=== PATIENT | female | born 1990 | race Caucasian/White ===

== ENCOUNTER 2018-12-25 17:50 | Outpatient (CLI) | payer OTHER ==
[2018-12-25 19:21] LABS: APPEARANCE,URINE CLEAR; BILIRUBIN,URINE NEGATIVE (NEGATIVE); COLOR,URINE STRAW; GLUCOSE, URINE NEGATIVE (NEGATIVE); KETONES,URINE NEGATIVE (NEGATIVE); LEUKOCYTE ESTERASE,URINE NEGATIVE (NEGATIVE); NITRITE,URINE NEGATIVE (NEGATIVE); PROTEIN,URINE NEGATIVE (NEGATIVE); URINE SPECIFIC GRAVITY 1.005; UROBILINOGEN,URINE NEGATIVE mg/dL (<2.0)
[2018-12-25 19:30] LABS: URINE AMPHETAMINES SCREEN NEGATIVE; URINE BARBITURATES SCREEN NEGATIVE; URINE BENZODIAZEPINES SCREEN NEGATIVE; URINE COCAINE SCREEN NEGATIVE; URINE MARIJUANA (THC) SCREEN NEGATIVE; URINE METHADONE SCREEN NEGATIVE; URINE PHENCYCLIDINE SCREEN NEGATIVE
--- NOTE | 2018-12-25 21:57 | RADIOLOGY REPORT (SQ) ---
EXAM DESCRIPTION: RadLex: US LIMITED CLINICAL HISTORY: 28 years Female; Abdominal Pain TECHNIQUE: Transabdominal limited due to obstetrical ultrasound was performed. COMPARISON: None. FINDINGS: Number of fetuses: Single position: Vertex HR: 128 BPM Anatomy: Not fully evaluated. Measurements were not performed on this limited exam. Amniotic fluid: CHRISTIE 14.4 cm, adequate. Clear. Cervix: 3.5 cm, closed Placenta: Posterior. No evidence for placental separation. No hematoma. IMPRESSION: 1. Single viable IUP. No acute findings.
== END 2018-12-25 21:40 | disposition home or self-care (01) ==
LOC: LC 17:50
PROVIDERS: ATTEND Obstetrics & Gynecology
PROC: 4A1HXCZ Monitoring of Products of Conception, Cardiac Rate, External Approach (ICD-10-PCS; principal; 2018-12-25)
DX: O26.892 Other specified pregnancy related conditions, second trimester (principal); R10.9 Unspecified abdominal pain; Z3A.27 27 weeks gestation of pregnancy
CPT/HCPCS: 76815; 80307; 81001

== ENCOUNTER 2019-03-25 19:30 | Inpatient (IN) | payer OTHER ==
[2019-04-01] MEDS ORDERED: DINOPROSTONE 10 MG VAGINAL INSERT.SR PV PRN (18:48)
[2019-04-01] MEDS ORDERED: RINGERS SOLUTION,LACTATED 300 ML IV ONE (18:48)
[2019-04-01] MEDS ORDERED: OXYTOCIN/NORMAL SALINE 20 UNIT/1,000 ML RTUINJ IV PRN (18:48)
[2019-04-01 19:14] LABS: ABSOLUTE EOSINOPHILS # (AUTO) 0.1 10^3/uL (0.0-0.6); ABSOLUTE LYMPHOCYTES (AUTO) 1.6 10^3/uL (0.5-4.7); ABSOLUTE MONOCYTES (AUTO) 0.6 10^3/uL (0.1-1.4); ABSOLUTE NEUT (AUTO) 6.1 10^3/uL (1.7-8.2); BASOPHILS % (AUTO) 0.2 % (0-2); EOSINOPHILS % (AUTO) 0.8 % (0-6); HEMATOCRIT 31.1 % (36.0-47.0); HEMOGLOBIN 10.7 g/dL (12.0-15.5); LYMPHOCYTES % (AUTO) 19.1 % (13-45); MEAN CORPUSCULAR HEMOGLOBIN 25.7 pg (27.0-33.4); MEAN CORPUSCULAR HGB CONC 34.3 g/dL (32.0-36.0); MEAN CORPUSCULAR VOLUME 75 fl (80-97); MONOCYTES % (AUTO) 7.2 % (3-13); PLATELET COUNT 171 10^3/uL (150-450); RED BLOOD COUNT 4.15 10^6/uL (3.72-5.28); RED CELL DISTRIBUTION WIDTH 17.1 % (11.5-14.0); SEGMENTED NEUTROPHILS % (AUTO) 72.7 % (42-78); TOTAL CELLS COUNTED % (AUTO) 100 %; WHITE BLOOD COUNT 8.4 10^3/uL (4.0-10.5)
[2019-04-01 19:16] LABS: APPEARANCE,URINE CLEAR; BILIRUBIN,URINE NEGATIVE (NEGATIVE); COLOR,URINE YELLOW; GLUCOSE, URINE NEGATIVE (NEGATIVE); KETONES,URINE NEGATIVE (NEGATIVE); LEUKOCYTE ESTERASE,URINE NEGATIVE (NEGATIVE); NITRITE,URINE NEGATIVE (NEGATIVE); PROTEIN,URINE NEGATIVE (NEGATIVE); URINE SPECIFIC GRAVITY 1.011; UROBILINOGEN,URINE NEGATIVE mg/dL (<2.0)
[2019-04-01] MEDS ORDERED: DINOPROSTONE 10 MG VAGINAL INSERT.SR ONE (19:38)
[2019-04-01 20:01] LABS: URINE AMPHETAMINES SCREEN NEGATIVE; URINE BARBITURATES SCREEN NEGATIVE; URINE BENZODIAZEPINES SCREEN NEGATIVE; URINE COCAINE SCREEN NEGATIVE; URINE METHADONE SCREEN NEGATIVE; URINE PHENCYCLIDINE SCREEN NEGATIVE
[2019-04-01 20:02] LABS: URINE MARIJUANA (THC) SCREEN NEGATIVE
--- NOTE | 2019-04-01 21:16 | Admission Physical ---
Datetime Report Generated by CPN: 04/01/2019 21:15 CURRENT ADMISSION Indication for Induction: Post Dates Admit Impression : Postterm, Intrauterine ; No Active Labor Admit Plan: Admit to Unit; Initiate Labor Induction Protocol ALLERGIES Medication Allergies: No Medication Allergies: No Known Allergies (03/21/2019) Latex: No Latex Allergies OBSTETRICAL HISTORY EDC: 03/25/2019 00:00 : 1 Para: 0 Term: 0 : 0 SAB: 0 IAB: 0 Ectopic: 0 Livin Cesareans: 0 VBACs: 0 Multiple Births: 0 Gestational Diabetes: No Rh Sensitization: No Incompetent Cervix: No SHANEKA: No Infertility: No ART Treatment: No Uterine Anomaly: No IUGR: No Hx Previous C/S: No Macrosomia: No Hx Loss/Stillborn: No PIH: No Hx : No Placenta Previa/Abruption: No Depression/PP Depression: No PTL/PROM: No Post Hemorrhage: No Current Procedures: Ultrasound; NST Obstetrical History Comments: G1- Current SEE RECORDS Alcohol: No Marijuana : No Cocaine: No Other Illicit Drugs: No Cigarettes: Former Smoker. [id number] MEDICAL HISTORY Diabetes: No Blood Transfusion: No Pulmonary Disease (Asthma, TB): No Breast Disease: No Hypertension: No Photographer Helper Surgery: No Heart Disease: No Hosp/Surgery: Yes Autoimmune Disorder: No Anesthetic Complications: No Kidney Disease: No Abnormal Pap Smear: No Neuro/Epilepsy: No Psychiatric Disorders: No Other Medical Diseases: No Hepatitis/Liver Disease: No Significant Family History: No Varicosities/Phlebitis: No Trauma/Violence : No Thyroid Dysfunction: No Medical History Comments: Appendix 2013 INFECTIOUS HISTORY Gonorrhea: No Genital Herpes: No Chlamydia: No Tuberculosis: No Syphilis: No Hepatitis: No HIV/AIDS Exposure: No Rash or Viral Illness: No HPV: No PHYSICAL EXAM General: Normal HEENT: Normal Neurologic: Normal Thyroid: Normal Heart: Normal Lungs: Normal Breast: Normal Back: Normal Abdomen: Normal Genitourinary Exam: Normal Extremities: Normal DTRs: Normal Pelvic Type: Adequate Vital Signs: Reviewed; Within Normal Limits VAGINAL EXAM Dilatation: 1 Effacement: 80 Station: -1 Contraction Comments: no regular MEMBRANES Membranes: Intact FETUS A Monitoring: External US FHR- Baseline: 140 Variability: Moderate 6-25bpm Accelerations: 15X15 Decelerations: None Admit Comment: G1 at 41 wks for IOL postdates -Admit to LDR -NPO and IVFs -CEFM and toco -Out of bed as tolerated -SCD while in bed -Cervix /-1. Cervidil placed -GBS negative -Anticipate PLANS FOR LABOR AND DELIVERY Labor and Delivery: None Pain Management: Natural Feeding Preference: Breast Benefit of Breast Feed Discussed: Yes Circumcision: N/A INFORMED CONSENT Informed Consent Obtained: Vaginal Delivery; Section Delivery; Vacuum/Forceps Assist; Risks, Benefits and Alternatives Discussed Signature: with User ID: [email or web address] : with User ID: [email or web address]
[2019-04-01] MEDS ORDERED: ZOLPIDEM TARTRATE 5 MG TABLET PO ONE (22:30)
[2019-04-01] MEDS ORDERED: ZOLPIDEM TARTRATE 5 MG TABLET ONE (22:51)
[2019-04-02] MEDS ORDERED: OXYTOCIN 10 UNIT/ML VIAL ONE ×2 (00:34→01:14)
[2019-04-02] MEDS ORDERED: OXYTOCIN/NORMAL SALINE 20 UNIT/1,000 ML RTUINJ ONE (00:34)
[2019-04-02] MEDS ORDERED: LIDOCAINE 1% INJ-PF (10 MG/ML) 30 ML SDV ONE (00:34)
[2019-04-02] MEDS ORDERED: MISOPROSTOL 0.2 MG TABLET ONE (00:34)
[2019-04-02] MEDS ORDERED: PROMETHAZINE HCL INJ 25 MG/1 ML VIAL ONE (02:27)
[2019-04-02] MEDS ORDERED: NALBUPHINE HCL INJ 10 MG/1 ML AMPULE ONE (02:27)
[2019-04-02] MEDS ORDERED: PROMETHAZINE HCL INJ 25 MG/1 ML VIAL IV ONE (03:00)
[2019-04-02] MEDS ORDERED: NALBUPHINE HCL INJ 10 MG/1 ML AMPULE INJ ONE (03:00)
[2019-04-02] MEDS: RINGERS SOLUTION,LACTATED 1,000 ML IV PRN ×2 (06:47→08:13)
[2019-04-02] MEDS ORDERED: EPHEDRINE SULFATE INJ 50 MG/1 ML AMPULE ONE (08:05)
[2019-04-02] MEDS ORDERED: FENTANYL/BUPIVACAINE/NS/PF 300 MCG/150 ML RTUINJ EPI ONE (08:06)
[2019-04-02] MEDS ORDERED: BUPIVACAINE HCL 0.25 % INJ/PF (2.5 MG/1 ML) 30 ML VIAL ONE (08:06)
[2019-04-02] MEDS ORDERED: OXYTOCIN/NORMAL SALINE 20 UNIT/1,000 ML RTUINJ IV PRN (12:58)
[2019-04-02] MEDS ORDERED: MEASLES,MUMPS&RUBELLA VACC/PF 0.5 ML VIAL SUBCUT PRN (12:58)
[2019-04-02] MEDS ORDERED: ACETAMINOPHEN WITH CODEINE #3 TABLET PO PRN (12:58)
[2019-04-02] MEDS ORDERED: BENZOCAINE/MENTHOL AEROSOL SPRAY 56 ML TOP PRN (12:58)
[2019-04-02] MEDS ORDERED: ZOLPIDEM TARTRATE 5 MG TABLET PO PRN (12:58)
[2019-04-02] MEDS ORDERED: DIBUCAINE 1% OINTMENT 28 GM TP PRN (12:58)
[2019-04-02] MEDS ORDERED: DIPH/PERTUSS(ACELL)/TETANUS VAC/PF 0.5 ML SYR (>=10YO) IM PRN (12:58)
[2019-04-02] MEDS ORDERED: AMPICILLIN SOD/SULBACTAM 3 GM VIAL ONE (13:12)
[2019-04-02] MEDS ORDERED: AMPICILLIN SOD/SULBACTAM 3 GM VIAL IV ONE (13:13)
[2019-04-02] MEDS: IBUPROFEN 800 MG TABLET PO SCH ×2 (17:04→21:02)
[2019-04-02] MEDS: DOCUSATE SODIUM 100 MG CAPSULE PO SCH (17:28)
[2019-04-03] MEDS: IBUPROFEN 800 MG TABLET PO SCH ×3 (05:40→23:01)
[2019-04-03 07:04] LABS: HEMATOCRIT 26.4 % (36.0-47.0); MEAN CORPUSCULAR HEMOGLOBIN 25.9 pg (27.0-33.4); MEAN CORPUSCULAR HGB CONC 34.1 g/dL (32.0-36.0); MEAN CORPUSCULAR VOLUME 76 fl (80-97); PLATELET COUNT 155 10^3/uL (150-450); RED BLOOD COUNT 3.47 10^6/uL (3.72-5.28); WHITE BLOOD COUNT 10.7 10^3/uL (4.0-10.5)
[2019-04-03] MEDS: PRENATAL VITAMIN W DHA CAPSULE PO SCH (09:29)
[2019-04-03] MEDS: DOCUSATE SODIUM 100 MG CAPSULE PO SCH ×2 (09:30→17:37)
[2019-04-03] MEDS: SENNOSIDES/DOCUSATE 8.6-50 MG 1 EACH TABLET PO SCH (09:30)
[2019-04-03] MEDS: FERROUS SULFATE 325 MG TABLET PO SCH (09:30)
--- NOTE | 2019-04-03 10:49 | PDOC PROGRESS REPORT ---
Subjective-OB Progress Note for:: 04/03/19 Subjective: reports bleeding slowing, pain controlled with current meds, denies needs Physical Exam (OB) Vital Signs: Temp Pulse Resp BP Pulse Ox 97.6 F 82 18 124/56 L 99 04/03/19 07:53 04/03/19 07:53 04/03/19 07:53 04/03/19 07:53 04/03/19 07:53 Intake & Output 04/02/19 04/03/19 04/04/19 06:59 06:59 06:59 Intake Total 2179 Balance 2179 Weight 117.3 kg - Abdomen Description: Soft, Round Hernia Present: No Fundal Description: Firm, Midline Fundal Height: u/u - u/2 - Abdominal Distension: No distension Tenderness: Nontender - Extremities Lower extremities: Rebeca's sign - neg Calf: Normal, Nontender Objective-Diagnostic Laboratory: 04/03/19 06:11 04/03/19 06:11 WBC 10.7 H RBC 3.47 L Hgb 9.0 L Hct 26.4 L MCV 76 L MCH 25.9 L MCHC 34.1 RDW 17.0 H Plt Count 155 Assessment and Plan(PN) - Assessment and Plan (1) Acute blood loss anemia Is this a current diagnosis for this admission?: Yes (2) GDM, class A1 Is this a current diagnosis for this admission?: Yes (3) (normal spontaneous vaginal delivery) Is this a current diagnosis for this admission?: Yes (4) PPH ( hemorrhage) Is this a current diagnosis for this admission?: Yes - Time Spent with Patient Time with patient: Less than 15 minutes Medications reviewed and adjusted accordingly: Yes - Disposition Anticipated Discharge: Home Within: within 24 hours
[2019-04-03 20:06] VITALS: BP 118/64
[2019-04-04] MEDS: IBUPROFEN 800 MG TABLET PO SCH (05:54)
[2019-04-04] MEDS: DOCUSATE SODIUM 100 MG CAPSULE PO SCH (09:37)
[2019-04-04] MEDS: SENNOSIDES/DOCUSATE 8.6-50 MG 1 EACH TABLET PO SCH (09:37)
[2019-04-04] MEDS: FERROUS SULFATE 325 MG TABLET PO SCH (09:38)
[2019-04-04] MEDS: PRENATAL VITAMIN W DHA CAPSULE PO SCH (09:38)
--- NOTE | 2019-04-04 11:12 | PDOC DISCHARGE SUMMARY ---
Impression - Admit/DC Date/PCP Admission Date/Primary Care Provider: 04/01/19 18:42 LILIANA AARON MD Discharge Date: 04/04/19 - Discharge Diagnosis (1) Acute blood loss anemia Is this a current diagnosis for this admission?: Yes (2) GDM, class A1 Is this a current diagnosis for this admission?: Yes (3) (normal spontaneous vaginal delivery) Is this a current diagnosis for this admission?: Yes (4) PPH ( hemorrhage) Is this a current diagnosis for this admission?: Yes - Additional Information Discharge Diet: Regular Discharge Activity: Balance Activity w/Rest, Pelvic Rest Referrals: LILIANA AARON MD [Primary Care Provider] - Home Medications: Ascorbic Acid [Vitamin C 500 mg Tablet] 500 mg PO DAILY 03/21/19 Pnv No.121/Iron/Folic Acid [ Multivitamin Tablet] 1 each PO DAILY 03/21/19 Docusate Sodium [Colace 100 mg Capsule] 100 mg PO BID capsule 04/04/19 Ibuprofen [Motrin 800 mg Tablet] 800 mg PO Q8 tablet 04/04/19 HPI Gestational Age: 41 Reason(s) for Admission: Induction of Labor Procedures: NST Intrapartum Procedure(s): Spontaneous Vaginal Delivery Complication(s): Laceration-Perineal Laceration-Degree: 1st Results Laboratory Results: WBC 10.7 10^3/uL (4.0-10.5) H 04/03/19 06:11 RBC 3.47 10^6/uL (3.72-5.28) L 04/03/19 06:11 Hgb 9.0 g/dL (12.0-15.5) L 04/03/19 06:11 Hct 26.4 % (36.0-47.0) L 04/03/19 06:11 MCV 76 fl (80-97) L 04/03/19 06:11 MCH 25.9 pg (27.0-33.4) L 04/03/19 06:11 MCHC 34.1 g/dL (32.0-36.0) 04/03/19 06:11 RDW 17.0 % (11.5-14.0) H 04/03/19 06:11 Plt Count 155 10^3/uL (150-450) 04/03/19 06:11 Lymph % (Auto) 19.1 % (13-45) 04/01/19 19:00 [place] % (Auto) 7.2 % (3-13) 04/01/19 19:00 Eos % (Auto) 0.8 % (0-6) 04/01/19 19:00 Baso % (Auto) 0.2 % (0-2) 04/01/19 19:00 Absolute Neuts (auto) 6.1 10^3/uL (1.7-8.2) 04/01/19 19:00 Absolute Lymphs (auto) 1.6 10^3/uL (0.5-4.7) 04/01/19 19:00 Absolute Monos (auto) 0.6 10^3/uL (0.1-1.4) 04/01/19 19:00 Absolute Eos (auto) 0.1 10^3/uL (0.0-0.6) 04/01/19 19:00 Absolute Basos (auto) 0.0 10^3/uL (0.0-0.2) 04/01/19 19:00 Seg Neutrophils % 72.7 % (42-78) 04/01/19 19:00 Urine Color YELLOW 04/01/19 19:00 Urine Appearance CLEAR 04/01/19 19:00 Urine pH 6.0 (5.0-9.0) 04/01/19 19:00 Ur Specific [place] 1.011 04/01/19 19:00 Urine Protein NEGATIVE mg/dL (NEGATIVE) 04/01/19 19:00 Urine Glucose (UA) NEGATIVE mg/dL (NEGATIVE) 04/01/19 19:00 Urine Ketones NEGATIVE mg/dL (NEGATIVE) 04/01/19 19:00 Urine Blood NEGATIVE (NEGATIVE) 04/01/19 19:00 Urine Nitrite NEGATIVE (NEGATIVE) 04/01/19 19:00 Urine Bilirubin NEGATIVE (NEGATIVE) 04/01/19 19:00 Urine Urobilinogen NEGATIVE mg/dL (<2.0) 04/01/19 19:00 Ur Leukocyte Esterase NEGATIVE (NEGATIVE) 04/01/19 19:00 Urine Ascorbic Acid NEGATIVE (NEGATIVE) 04/01/19 19:00 Urine Opiates Screen NEGATIVE 04/01/19 19:00 Urine Methadone Screen NEGATIVE 04/01/19 19:00 Ur Barbiturates Screen NEGATIVE 04/01/19 19:00 Ur Phencyclidine Scrn NEGATIVE 04/01/19 19:00 Ur Amphetamines Screen NEGATIVE 04/01/19 19:00 U Benzodiazepines Scrn NEGATIVE 04/01/19 19:00 Urine Cocaine Screen NEGATIVE 04/01/19 19:00 U Marijuana (THC) Screen NEGATIVE 04/01/19 19:00 RPR NONREACTIVE (NONREACTIVE) 04/01/19 19:00 Blood Type B POSITIVE 04/01/19 19:00 Antibody Screen NEGATIVE 04/01/19 19:00 Plan Plan of Treatment: follow up at [facility] in 4 weeks for post check
--- NOTE | 2019-04-05 12:54 | Delivery Summary ---
Del Sum A-C Datetime Report Generated by CPN: 04/05/2019 12:53 DELIVERY PERSONNEL DELIVERY PERSONNEL: [id number] Delivery Doctor:: Purnima Chou CNM Nurse Canine Service Instructor Trainer Certified:: Purnima BONITA Chou Labor and Delivery Nurse:: Joslyn Small RNbusiness project manager Nurse:: Ana Stuart RNC Nursery Nurse:: Katt Jamil RN Revenue Accountant/BENEFIT DIRECTOR: Betty Cole CNA II Revenue Accountant/BENEFIT DIRECTOR: Dayanara Lemus, ST MATERNAL INFORMATION Delivery Anesthesia: Epidural Medications After Delivery: Pitocin Bolus-Please Comment Meds After Delivery Comment: Pitocin 20 units in 1000 ml nss open for bolus after delivery of placenta Delivery QBL: 806 Maternal Complications: None Provider Comments: , ANDRES, of VFI, loose NC that was easily reduced. Shoulders delivered easily as well. Baby girl crying and placed on pts abdoman in stable condition. Dr Cruz was present in room on stand by for the delivery. Cord clamped and cut after one minute. Cord blood collected. Placenta delivered at 20 min joshua, uterine atony noted, IV Pitocin and 200 mcg SL Cytotec given. Small placental fragment removed on bimanual massage. Will give one dose Unasyn IV. No repair of 1st degree laceration needed. Mother and baby in stable condition, skin to skin. pt plans to breastfeed. Awaiting QBL result. Attending MD is Dr Cruz LABOR SUMMARY EDC: 03/25/2019 00:00 No. Babies in Womb: 1 Attempted: No Labor Anesthesia: Epidural LABOR INFORMATION Reason for Induction: Maternal Diabetes Onset of Labor: 04/02/2019 02:00 Complete Dilatation: 04/02/2019 12:16 Cervical Ripening Agents: Cervidil Oxytocin: Induction Group B Beta Strep: Negative Antibiotics # of Doses: 0 Steroids Given: None Reason Steroids Not Administered: Not Applicable MEMBRANES Membranes Rupture Method: Spontaneous Rupture of Membranes: 04/02/2019 06:04 Length of Rupture (hr): 6.35 Amniotic Fluid Color: Clear Amniotic Fluid Amount: Moderate Amniotic Fluid Odor: Normal STAGES OF LABOR Stage 1 hr: 10 Stage 1 min: 16 Stage 2 hr: 0 Stage 2 min: 9 Stage 3 hr: 0 Stage 3 min: 20 Total Time in Labor hr: 10 Total Time in Labor min: 45 VAGINAL DELIVERY Episiotomy: None Laceration #1: Perineal Laceration Extension #1: First Degree Laceration Repair: No Laceration Repair Note: hemostatic, no repair needed Sponge Count Correct: N/A CSECTION DELIVERY Primary Indication: N/A Secondary Indication: N/A CSection Incidence: N/A Labor: N/A Elective: N/A CSection Incision: N/A BABY A INFORMATION Delivery Date/Time: 04/02/2019 12:25 Method of Delivery: Vaginal Born in Route : No : N/A Forceps: N/A Vacuum Extraction: N/A Shoulder Dystocia : No PRESENTATION/POSITION BABY A Presentation: Cephalic Cephalic Presentation: Vertex Vertex Position: Left Occipital Anterior Breech Presentation: N/A PLACENTA INFORMATION BABY A Placenta Delivery Time : 04/02/2019 12:45 Placenta Method of Delivery: Spontaneous Placenta Status: Delivered SCORES BABY A Heart Rate 1 min: >100 bpm Resp Effort 1 min: Good Cry Reflex Irritability 1 min: Cough or Sneeze or Pulls Away Muscle Tone 1 min: Active Motion Color 1 min: Blue/Pale Resuscitation Effort 1 min: Tactile Stimulation SCORE 1 MIN: 8 Heart Rate 5 min: >100 bpm Resp Effort 5 min: Good Cry Reflex Irritability 5 min: Cough or Sneeze or Pulls Away Muscle Tone 5 min: Active Motion Color 5 min: Body [place], Extremities Blue Resuscitation Effort 5 min: N/A SCORE 5 MIN: 9 Resuscitation Effort 10 min: N/A INFANT INFORMATION BABY A Gestational Age at Delivery: 41.1 Gestational Status: Late Term- 41- 41.6 Weeks Outcome : Liveborn Infant Condition : Stable Sex: Female IDENTIFICATION BABY A Infant Verification Date/Time: 04/02/2019 12:35 ID Band Number: [id number] Mother's Name Verified: Yes RN Verifying Infant: Ana Camp RNC Additional Verifying Personnel: Aleks Small RN WEIGHT/LENGTH BABY A Birthweight (gm): 4190 Infant Weight (lb): 9 Weight (oz): 4 Length (in): 21.00 Length (cm): 53.34 CORD INFORMATION BABY A No. Cord Vessels: 3 Nuchal Cord : Around Neck x1, Loose Cord Blood Taken: Yes-For Storage (Mom's Blood type +) Suction: None ASSESSMENT BABY A Infant Complications: None Physical Findings at Delivery: Caput Succedaneum; Molding of the Head Respirations: Appears Normal Skin to Skin: Yes Oracle Solutions Architect/ALS Called : No Infant Care By: Ivette Jamil RN Transferred To: Remains with Mother BABY B INFORMATION : N/A SIGNATURES Assignment: Corine Cruz MD Signature: with User ID: [email or web address] : with User ID: [email or web address]
--- NOTE | 2019-04-11 12:10 | PDOC PROGRESS REPORT ---
Subjective-OB Progress Note for:: 04/11/19 Subjective: This is a clarification for the discharge summary. The admit anemia is not acute blood loss anemia. The patient has anemia related to . Thank you Physical Exam (OB) Vital Signs: Temp Pulse Resp BP Pulse Ox 97.4 F 86 18 118/64 99 04/04/19 11:26 04/04/19 11:26 04/04/19 11:26 04/03/19 19:43 04/04/19 11:26 - PIH/Pre-Eclampsia DTR's: 1 + Clonus: Negative Headache: Absent Epigastric Pain: No Visual Changes: No - Lochia Lochia Amount: Scant < 10 ml Lochia Color: Rubra/Red - Abdomen Description: Soft Hernia Present: No Fundal Description: Firm, Midline Fundal Height: u/u - u/2 Objective-Diagnostic Laboratory: 04/03/19 06:11 Assessment and Plan(PN) - Time Spent with Patient Medications reviewed and adjusted accordingly: Yes - Disposition Anticipated Discharge: Home
== END 2019-04-04 13:10 | disposition home or self-care (01) | DRG 807 ==
LOC: LR 04-01 18:42 → UNDODISIN 04-01 20:57 → 2S 04-02 14:58
PROVIDERS: ADMIT Student in an Organized Health Care Education/Training Program; ATTEND Obstetrics & Gynecology
PROC: 10E0XZZ Delivery of Products of Conception, External Approach (ICD-10-PCS; principal; 2019-04-02)
DX: O48.0 Post-term pregnancy (principal); Z37.0 Single live birth; O69.81X0 Labor and delivery complicated by cord around neck, without compression, not applicable or unspecified; O70.0 First degree perineal laceration during delivery; O24.429 Gestational diabetes mellitus in childbirth, unspecified control; Z3A.41 41 weeks gestation of pregnancy; Z87.891 Personal history of nicotine dependence; O99.02 Anemia complicating childbirth; D64.9 Anemia, unspecified
CPT/HCPCS: 36415; 80307; 81005; 85025; 85027; 86592; 86850; 86900; 86901; 88307; 94760; J0295; J2300; J2550; J2590; J3010; J3490